=== PATIENT | male | born 1940 | race Two or more races ===

== ENCOUNTER 2020-01-13 10:29 | Emergency (ER) | payer MEDICARE, OTHER, SELFPAY ==
[~2020-01-13] VITALS: Ht 160 cm; Wt 73.0 kg
--- NOTE | 2020-01-13 11:10 | NUR ---
PTS EX PHONE NUMBER - [phone]
[2020-01-13] MEDS ORDERED: CARBAMIDE PEROXIDE EAR DROPS 6.5%, 15ML ONE (11:16)
[2020-01-13] MEDS ORDERED: CARBAMIDE PEROXIDE EAR DROPS 6.5%, 15ML EACH EAR ONE (12:00)
[2020-01-13 12:21] VITALS: BP 141/93
== END 2020-01-13 13:24 | disposition home or self-care (01) ==
LOC: ED 10:45
DX: H61.23 Impacted cerumen, bilateral (principal); R05 Cough; J98.4 Other disorders of lung; I10 Essential (primary) hypertension; Z87.891 Personal history of nicotine dependence
CPT/HCPCS: 69209; 71045; 99283